=== PATIENT | female | born 1985 | race Two or more races ===

== ENCOUNTER 2025-08-01 09:23 | Emergency (ER) | payer MEDICAID, SELFPAY ==
[2025-08-01 09:43] VITALS: BP 117/83; PULSE 88; RESP 18; TEMP 36.9; O2SAT 99; BMI 22.6
[2025-08-01 10:43] LABS: Basophils # (Auto) 0.1 Thou/mm3 (0.0-0.2); Basophils % (Auto) 1 % (0-2.5); Eosinophils # (Auto) 0.1 Thou/mm3 (0.0-0.5); Eosinophils % (Auto) 2 % (0-10); Hematocrit 37.9 % (36.0-46.0); Hemoglobin 12.3 g/dL (12.0-16.0); Immature Granulocytes Auto 0.01 Thou/mm3 (0.00-0.00); Lymphocytes # (Auto) 1.6 Thou/mm3 (1.0-4.8); Lymphocytes % (Auto) 32 % (10-50); Mean Corpuscular HGB Conc 32.5 g/dl (31.0-37.0); Mean Corpuscular Hemoglobin 27.6 pg (25.0-35.0); Mean Corpuscular Volume 85 fL (80-100); Monocytes # (Auto) 0.4 Thou/mm3 (0.0-0.8); Monocytes % (Auto) 8 % (0-12); Neutrophils # (Auto) 2.9 Thou/mm3 (1.8-7.7); Neutrophils % (Auto) 57 % (37-80); Nucleated Red Blood Cell # 0.00 Thou/mm3 (0.00-0.00); Nucleated Red Blood Cell % 0 /100 WBC (0); Platelet Count 309 Thou/mm3 (140-440); RDW Standard Deviation 53.3 fL (36.4-46.3); Red Blood Count 4.46 Miln/mm3 (4.00-5.20); White Blood Count 5.1 Thou/mm3 (3.6-11.0)
--- NOTE | 2025-08-01 10:53 | PD.EDBACK ---
ED Back Injury Pain RME/HPI General Chief Complaint: General Adult/Misc Complain Stated Complaint: UTI/FLANK PAIN; SENT BY [facility] Time Seen by Provider: 08/01/25 10:27 Arrival date/time: 08/01/25 09:23 RME / HPI RME / HPI Narrative: 39 year old female patient with history of previous kidney infections presents to the ED referred by PCP at [facility] for evaluation of back pain beginning earlier this week. Pain described as aching in sensation that is located most across her lower back, rating as moderate in severity. Accompanied by pelvic cramping pain. States she had consulted her PCP when symptoms first began and diagnosed with a UTI. States she was started on Macrobid which she developed a rash to and medication was switched to a 3-day course of Bactrum that she began yesterday. Denies any fevers, chills, nausea, vomiting, or urinary symptoms. Related Data Previous Rx's ?Medication ?Instructions ?Recorded cephalexin 500 mg capsule 500 mg PO QID #28 caps 12/25/23 ibuprofen 600 mg tablet 600 mg PO Q6H PRN pain #30 tabs 08/01/25 Allergies Allergy/AdvReac Type Severity Reaction Status Date / Time No Known Allergies Allergy Verified 08/01/25 09:26 Review of Systems Review of Systems Systems Reviewed: All systems reviewed, normal except as documented Past Medical History Past Medical History CARDIAC: Negative Cardiac Disorders or Congestive Heart Failure RESPIRATORY: Negative Chronic Obstructive Pulmonary Disease (COPD) or Asthma GENITOURINARY: Negative Renal Disease ENDOCRINE: Negative Diabetes Mellitus Type 1 or Diabetes Mellitus Type 2 HEMATOLOGIC: Negative Sickle Cell Disease Social History SMOKING STATUS: Never smoker ED Exam Narrative Physical exam: GENERAL APPEARANCE: alert and oriented x 4, well-developed, well-nourished, no acute distress HEENT: Normocephalic, atraumatic; pupils equal, round, reactive to light; EOMI; mucous membranes pink, moist; oropharynx clear NECK: Supple LUNGS: CTABL; no wheezes, no rales, no rhonchi HEART: Regular rate, regular rhythm; normal S1, S2; no murmurs ABDOMEN: non distended; normal BS; soft, no tenderness, no guarding, no rebound; no masses, no organomegaly, no hernia BACK: Tenderness over the SI joint, no CVA tenderness EXTREMITIES: atraumatic; no edema NEUROLOGIC: awake; alert and oriented x4; cranial nerves II-XII grossly intact; no focal sensory or motor deficits PSYCHIATRIC: appropriate mood and affect SKIN: warm, dry, normal color; no rashes Course Quality Measures none Orders Category Date Time Status CBC Stat Lab 08/01/25 10:36 Completed CMP [Comprehensive Metabolic Panel] Stat Lab 08/01/25 10:36 Completed HCG Qualitative,Urine Stat Lab 08/01/25 10:30 Completed UA, C/S IF [Urinalysis, C/S if Indicated] Stat Lab 08/01/25 10:30 Completed Ketorolac Inj [Toradol Inj] Med 08/01/25 11:23 Discontinued 30 mg IM X1 ONE Vital Signs Vital signs: Vital Signs Temperature 98.5 F 08/01/25 09:43 Pulse Rate 88 08/01/25 09:43 Respiratory Rate 18 08/01/25 09:43 Blood Pressure 117/83 08/01/25 09:43 Pulse Oximetry (%) 99 08/01/25 09:43 Oxygen Delivery Method Room Air 08/01/25 09:43 Pulse ox is 99% on room air which is adequate. Back Pain / Injury MDM Narrative MDM Narrative:: Jelly Johnson am scribing for and in the presence of Dr. Lieberman. Patient data External records reviewed:: [facility] previous records Clinical information provided by:: patient Social determinants that could affect healthcare access:: none Patient has the following chronic illnesses:: hx of kidney infection, no other chronic medical hx reported How is presenting disease/condition affected by chronic disease/condition?: no chronic disease Evaluation data The following diagnostics were reviewed and interpreted by me:: lab results Lab and/or radiology exams considered but not ordered:: None Interpretation Summary: CBC and CMP are within normal limits, no acute findings. Urinalysis negative for infection. There are 20 RBC though patient is currently on her menses. Medications / Prescriptions Medications or Prescriptions considered but not ordered:: None Medication administrations:: Medication Administration History Discontinued Medications Ketorolac Tromethamine (Ketorolac Inj 30 Mg/Ml Vial) 30 mg IM X1 ONE Stop: 08/01/25 11:24 See above Consultations Consultation(s) initiated? (list below): No Diagnosis Most likely diagnosis given after review of the tests above:: Low back pain Sacroiliac pain Admission Indicated Admission indicated?: not indicated Admission Request Was there a request for admission?: No Disposition Plan Disposition Plan: Discharge Discharge Attestation Discharge Attestation: The patient and all family members were given an opportunity to ask questions and understood the discharge instructions. Discharge instructions specifically effects, indications for sooner follow up or return to the emergency department, and the expected course of current diagnosis. Patient condition: Stable Discharge Plan Plan Patient Disposition: HOME (Self Care) Prescriptions/Referrals Prescriptions/Med Rec: New ibuprofen 600 mg tablet 600 mg PO Q6H PRN (Reason: pain) Qty: 30 0RF No Action cephalexin 500 mg capsule 500 mg PO QID Qty: 28 0RF Referrals: Samantha Loco MD [Primary Care Provider, Family Practice] - In 1 week Problem List Clinical Impression: Low back pain, Sacroiliac pain Patient/Caregiver Discharge Instructions Education Materials: Self-Care for Low Back Pain, Understanding Sacroiliac Strain Additional Instructions: Continue prescribed treatment for urinary tract infection until medication complete Print Language: Mongolian Stand Alone Forms: Dania Award Info., Patient Portal Info Letter
[2025-08-01 10:56] LABS: Collection Type, Urine Clean Catch
[2025-08-01 11:01] LABS: Alanine Aminotransferase 14 U/L (10-49); Albumin, Serum 4.6 gm/dL (3.5-5.0); Albumin/Globulin Ratio 1.5 (1.2-2.2); Alkaline Phosphatase 55 U/L (46-116); Anion Gap 9 (7-16); Aspartate Amino Transferase 19 U/L (0-34); BUN/Creatinine Ratio 11 Ratio (12-20); Bilirubin,Total 0.4 mg/dL (0.3-1.2); Blood Urea Nitrogen 9 mg/dL (9-23); Calcium 9.4 mg/dL (8.3-10.6); Calcium (Corrected) 9.4 mg/dL (8.5-10.1); Carbon Dioxide 25.7 mMol/L (20.0-31.0); Chloride 105 mMol/L (98-107); Creatinine (Component) 0.8 mg/dL (0.6-1.3); Estimated Creatinine Clearance 74.7 mL/min (>60); Globulin 3.1 gm/dL (2.3-3.5); Glucose 96 mg/dL (74-106); Osmolality,Calculated 278 (275-295); Potassium 3.8 mMol/L (3.4-5.1); Sodium 140 mMol/L (136-145); Total Protein 7.7 gm/dL (5.7-8.2); eGFR > 60 See Note
[2025-08-01 11:04] LABS: Bilirubin,Urine Negative (Negative); Blood,Urine 3+ (Negative); Clarity,Urine Clear (Clear/Hazy); Color,Urine Lt-Yellow (Lt Yel-Yel); Culture Indicated,Urine Not Indicated; Glucose, Urine Negative (Negative); Ketones,Urine Negative (Negative); Leukocyte Esterase,Urine Negative (Negative); Nitrite,Urine Negative (Negative); PH,Urine 6.0 (5.0-7.0); Protein,Urine Negative (Neg - Trace); RBC,Urine 20 /hpf (0-3); Specific Gravity,Urine 1.022 (1.001-1.035); Squamous Epithelial Cell,Urine 3 /hpf (0-5); Urobilinogen,Urine Negative mg/dL (0.0-1.0); WBC,Urine 1 /hpf (0-5)
[2025-08-01 11:08] LABS: HCG Qualitative,Urine Negative
[2025-08-01] MEDS: KETOROLAC INJ 30 MG/ML VIAL IM (12:03)
== END 2025-08-01 12:06 | disposition home or self-care (01) ==
PROVIDERS: Emergency Provider Emergency Medicine; PCP Family Medicine
DX: M53.3 Sacrococcygeal disorders, not elsewhere classified (principal)
CPT/HCPCS: 36415; 80053; 81001; 81025; 85025; 96372; 99283; J1885